=== PATIENT | female | born 1945 | race Caucasian/White ===

== ENCOUNTER → 2020-10-09 | Outpatient (CLI) | payer MEDICARE ==
[~2020-10-09] MED LIST: HYDROXYCHLOROQ200 MG PO; LASIX20 MG PO; LEFLUNOMIDE20 MG PO; LEVOTHYROXINE50 MCG PO; LISINOPRIL10 MG PO; NORCO 5-325 TA1 EACH PO; NORCO 7.5-3251 EACH PO; POTASSIUM CHLO10 MEQ PO; PRILOSEC OTC20 MG PO; TRAMADOL HCL50 MG PO
== END ==
LOC: MAMO 11:30
DX: Z12.31 Encounter for screening mammogram for malignant neoplasm of breast (principal)
CPT/HCPCS: 77063; 77067

== ENCOUNTER → 2021-04-30 | Outpatient (CLI) | payer MEDICARE | LOC: RT 16:06 | DX: I10 Essential (primary) hypertension (principal) | CPT/HCPCS: 93005 ==

== ENCOUNTER 2021-08-15 17:32 | Emergency (ER) | payer MEDICARE ==
[2021-08-15 19:32] LABS: BUN/CREATININE RATIO 18 (0-10)
[2021-08-15 19:36] LABS: RED BLOOD COUNT 3.39 M/UL (4.00-5.10); WHITE BLOOD COUNT 11.5 K/UL (4.5-11.0)
[2021-08-16] MEDS ORDERED: LASIX20 MG PO (01:39)
== END 2021-08-16 02:12 | disposition home or self-care (01) ==
LOC: ER1 17:32
PROVIDERS: Physician Assistant Medical
DX: R60.0 Localized edema (principal); D64.9 Anemia, unspecified; R53.81 Other malaise; K64.9 Unspecified hemorrhoids; R19.7 Diarrhea, unspecified
CPT/HCPCS: 36415; 71045; 73590; 73620; 80053; 82550; 82553; 83874; 83880; 84439; 84443; 84484; 85025; 93005; 99284

== ENCOUNTER 2021-08-29 08:34 | Inpatient (IN) | payer MEDICARE ==
[~2021-08-29] VITALS: Ht 165.1 cm; Wt 51.7 kg
[~2021-08-29 08:34] MED LIST changes: +OMEPRAZOLE40 MG PO; -PRILOSEC OTC20 MG PO
[2021-08-29 09:15] LABS: HEMOGLOBIN 10.9 gm/dl (12.3-15.3); RED BLOOD COUNT 3.55 M/UL (4.00-5.10); WHITE BLOOD COUNT 7.5 K/UL (4.5-11.0)
[2021-08-29 09:38] LABS: BUN/CREATININE RATIO 15 (0-10)
[2021-08-29] MEDS ORDERED: HYDROCODON-ACE1 EAC4 PO (12:06)
[2021-08-29] MEDS ORDERED: ASPIRIN EC81 MG PO (12:07)
[2021-08-30 05:33] LABS: HEMOGLOBIN 9.1 gm/dl (12.3-15.3)
[2021-08-30 05:34] LABS: RED BLOOD COUNT 3.05 M/UL (4.00-5.10); WHITE BLOOD COUNT 23.6 K/UL (4.5-11.0)
[2021-08-30 05:47] LABS: BUN/CREATININE RATIO 17 (0-10)
[2021-08-31 07:37] LABS: HEMOGLOBIN 8.1 gm/dl (12.3-15.3)
[2021-08-31 08:08] LABS: BUN/CREATININE RATIO 17 (0-10)
[2021-08-31 08:41] LABS: RED BLOOD COUNT 2.65 M/UL (4.00-5.10)
[2021-09-01 04:33] LABS: HEMOGLOBIN 7.5 gm/dl (12.3-15.3); RED BLOOD COUNT 2.56 M/UL (4.00-5.10); WHITE BLOOD COUNT 25.6 K/UL (4.5-11.0)
[2021-09-01 04:55] LABS: BUN/CREATININE RATIO 24 (0-10)
--- NOTE | 2021-09-01 15:25 | NUR ---
DISCUSSED PATIENT FEELING WEAK WITH DR. ROSAS. HE STATES TO NOT LET PATIENT WORK WITH PT TODAY AND SEE HOW SHE IS TOMORROW. ORDER GIVEN FOR MINERAL OIL AFTER I EXPLAINED THAT SHE HAD NOT HAD MUCH OUTPUT IN HER COLOSTOMY. HE WAS ALSO AWARE OF ABNORMAL LABS AND SAID NOT TO TRANSFUSE UNTIL LABS CHANGE OR PATIENT CONDITION CHANGES.
[2021-09-02 07:26] LABS: HEMOGLOBIN 8.6 gm/dl (12.3-15.3); WHITE BLOOD COUNT 22.4 K/UL (4.5-11.0)
[2021-09-02 07:30] LABS: RED BLOOD COUNT 2.87 M/UL (4.00-5.10)
[2021-09-02 07:46] LABS: BUN/CREATININE RATIO 23 (0-10)
--- NOTE | 2021-09-02 08:08 | NUR ---
PATIENT NOTED TO HAVE A CALCIUM OF 5.9 THIS MORNING ON LABWORK. CONTACTED AND STATED THAT HE WOULD PUT ORDERS IN WHEN HE GOT HERE. PATIENT STABLE AT THIS TIEM WITH NO DISTRESS NOTED.
--- NOTE | 2021-09-02 14:27 | NUR ---
PATIENT REQUESTING PEPPERMINT AT THIS TIME TO HELP KEEP HER MOUTH MOIST. APPROVED.
[2021-09-03 04:23] LABS: HEMOGLOBIN 8.7 gm/dl (12.3-15.3); RED BLOOD COUNT 2.89 M/UL (4.00-5.10); WHITE BLOOD COUNT 23.8 K/UL (4.5-11.0)
[2021-09-03 04:37] LABS: BUN/CREATININE RATIO 21 (0-10)
[2021-09-04 06:29] LABS: HEMOGLOBIN 8.3 gm/dl (12.3-15.3); RED BLOOD COUNT 2.76 M/UL (4.00-5.10)
[2021-09-04 10:26] LABS: BUN/CREATININE RATIO 20 (0-10)
[2021-09-07 05:01] LABS: HEMOGLOBIN 8.3 gm/dl (12.3-15.3); RED BLOOD COUNT 2.63 M/UL (4.00-5.10)
[2021-09-07 05:08] LABS: WHITE BLOOD COUNT 39.8 K/UL (4.5-11.0)
[2021-09-07 05:20] LABS: BUN/CREATININE RATIO 23 (0-10)
[2021-09-08 08:10] LABS: HEMOGLOBIN 9.3 gm/dl (12.3-15.3); RED BLOOD COUNT 3.01 M/UL (4.00-5.10); WHITE BLOOD COUNT 25.6 K/UL (4.5-11.0)
[2021-09-08 11:09] LABS: BUN/CREATININE RATIO 29 (0-10)
--- NOTE | 2021-09-10 16:20 | NUR ---
PT VERBALIZED [facility] FOR PHONE CONSENT FOR PEG TUBE PLACEMENT. SAID SHE IS TOO WEAK AND HER HANDS ARE SWOLLEN.
--- NOTE | 2021-09-12 13:09 | NUR ---
RECIEVED ORDERS FROM DR. MENDIOLA TO START TUBE FEEDING (JEVITY 1.5). FEEDING STARTED AT 25 ML/HR AND WILL ADVANCE 10ML TO 20ML EVERY 8 HOURS UNTIL GOAL RATE OF 35 ML/HR IS ACHIEVED. PATIENT IS TOLERATING WELL. WILL CONTINUE TO MONITOR.
[2021-09-13 07:01] LABS: HEMOGLOBIN 7.6 gm/dl (12.3-15.3); RED BLOOD COUNT 2.49 M/UL (4.00-5.10); WHITE BLOOD COUNT 11.3 K/UL (4.5-11.0)
[2021-09-13 08:40] LABS: BUN/CREATININE RATIO 39 (0-10)
[2021-09-13] MEDS ORDERED: MEGACE TAB 40 M40 MG PO (14:52)
[2021-09-13] MEDS ORDERED: PERCOCET 5/325 T1 EA PO (14:52)
[2021-09-14 04:11] LABS: HEMOGLOBIN 8.2 gm/dl (12.3-15.3); RED BLOOD COUNT 2.58 M/UL (4.00-5.10)
[2021-09-14 04:20] LABS: BUN/CREATININE RATIO 46 (0-10)
--- NOTE | 2021-09-14 22:52 | NUR ---
SPOKE WITH LEIGH AT [facility] AND SHE REQUESTED THAT THE PATIENT BE BROUGHT IN THE AM DUE TO IT BEING SO LATE. I NOTIFIED JAMES WITH THE AMBULANCE SERVICE ND HE SAID THEY WOULD COME GET HER IN THE MORNING ND THAT THEY HAD ALREADY ANTICIPATED DOING SO DUE TO DEMAND AND ROAD CONDITIONS. I SPOKE WITH PAOLO MAGALLON AND NOTIFIED HER OF THIS AND SHE SAID IT WAS OK. PT WILL LEAVE IN AM. NOTIFIED DENISE
[2021-09-15 04:53] LABS: HEMOGLOBIN 7.3 gm/dl (12.3-15.3); RED BLOOD COUNT 2.41 M/UL (4.00-5.10)
[2021-09-15 05:00] LABS: WHITE BLOOD COUNT 5.9 K/UL (4.5-11.0)
[2021-09-15 05:27] LABS: BUN/CREATININE RATIO 39 (0-10)
== END 2021-09-15 12:35 | DRG 329 ==
LOC: ER1 08:34 → CDU 11:44 → CCU 11:44 → MED SURG 4 08-30 20:07
PROVIDERS: Student in an Organized Health Care Education/Training Program; ADMIT Surgery
PROC: 0DTN0ZZ Resection of Sigmoid Colon, Open Approach (ICD-10-PCS; principal; 2021-09-10)
PROC: 0D1N0Z4 Bypass Sigmoid Colon to Cutaneous, Open Approach (ICD-10-PCS; 2021-09-10)
PROC: 0DH63UZ Insertion of Feeding Device into Stomach, Percutaneous Approach (ICD-10-PCS; 2021-09-11)
PROC: 3E0336Z Introduction of Nutritional Substance into Peripheral Vein, Percutaneous Approach (ICD-10-PCS; 2021-09-11)
DX: K57.20 Diverticulitis of large intestine with perforation and abscess without bleeding (principal); K65.1 Peritoneal abscess; Z68.1 Body mass index [BMI] 19.9 or less, adult; E44.0 Moderate protein-calorie malnutrition; E83.51 Hypocalcemia; Z20.822 Contact with and (suspected) exposure to COVID-19; R62.7 Adult failure to thrive; M06.9 Rheumatoid arthritis, unspecified; L89.151 Pressure ulcer of sacral region, stage 1; E03.9 Hypothyroidism, unspecified; Z79.899 Other long term (current) drug therapy
CPT/HCPCS: 36415; 71045; 80048; 80053; 82272; 82310; 82550; 82553; 82962; 83605; 83735; 84132; 84439; 84443; 84484; 85025; 85027; 85610; 86850; 86900; 86901; 87040; 93005; 96374; 97110; 97110-GP-CQ; 97162; 97166; 97530; 97530-GP-CQ; 97535; 99285; A6212; J0610; J0690; J1100; J1170; J1650; J2001; J2185; J2370; J2405; J2543; J2704; J3010; J7040; J7120; Q9967; U0002

== ENCOUNTER 2021-09-17 17:31 | Emergency (ER) | payer MEDICARE ==
[~2021-09-17 17:31] MED LIST changes: +ASPIRIN EC81 MG PO; +HYDROCODON-ACE1 EAC4 PO; +MEGACE TAB 40 M40 MG PO; +PERCOCET 5/325 T1 EA PO
[2021-09-17 19:43] LABS: HEMOGLOBIN 7.4 gm/dl (12.3-15.3); RED BLOOD COUNT 2.27 M/UL (4.00-5.10); WHITE BLOOD COUNT 6.4 K/UL (4.5-11.0)
[2021-09-17 20:01] LABS: BUN/CREATININE RATIO 49 (0-10)
== END 2021-09-17 22:50 | disposition home or self-care (01) ==
LOC: ER1 17:31
PROVIDERS: Emergency Medicine
DX: D64.9 Anemia, unspecified (principal); K94.03 Colostomy malfunction
CPT/HCPCS: 80053; 85025; 85610; 99284

== ENCOUNTER 2021-09-19 05:24 | Inpatient (IN) | payer MEDICARE ==
[~2021-09-19] VITALS: Ht 165.1 cm; Wt 64.2 kg
[2021-09-19 18:12] LABS: RED BLOOD COUNT 1.98 M/UL (4.00-5.10); WHITE BLOOD COUNT 17.3 K/UL (4.5-11.0)
[2021-09-19 18:14] LABS: HEMOGLOBIN 6.6 gm/dl (12.3-15.3)
[2021-09-19] MEDS ORDERED: BETADINE30 ML TOP (18:19)
[2021-09-19] MEDS ORDERED: TRIPLE ANTIBIO1 EACH TP (18:19)
[2021-09-19] MEDS ORDERED: ROXICODONE5 MG PO (18:19)
[2021-09-19] MEDS ORDERED: APLISOL5 TUB UNIT ID (18:21)
[2021-09-19 18:36] LABS: BUN/CREATININE RATIO 41 (0-10)
[2021-09-19 21:37] LABS: WHITE BLOOD COUNT 13.7 K/UL (4.5-11.0)
[2021-09-19 21:45] LABS: RED BLOOD COUNT 3.92 M/UL (4.00-5.10)
[2021-09-19 21:46] LABS: HEMOGLOBIN 12.3 gm/dl (12.3-15.3)
[2021-09-19 21:50] LABS: BUN/CREATININE RATIO 43 (0-10)
[2021-09-20 02:18] LABS: HEMOGLOBIN 11.6 gm/dl (12.3-15.3); RED BLOOD COUNT 3.7 M/UL (4.00-5.10); WHITE BLOOD COUNT 15.1 K/UL (4.5-11.0)
[2021-09-20 02:42] LABS: BUN/CREATININE RATIO 41 (0-10)
[2021-09-20 16:23] LABS: HEMOGLOBIN 11.9 gm/dl (12.3-15.3)
[2021-09-21 02:27] LABS: RED BLOOD COUNT 3.45 M/UL (4.00-5.10); WHITE BLOOD COUNT 17.5 K/UL (4.5-11.0)
[2021-09-21 02:52] LABS: BUN/CREATININE RATIO 37 (0-10)
--- NOTE | 2021-09-21 03:13 | NUR ---
PHYSICAN AWARE OF PATIENT LACTIC ACID RESULTS
--- NOTE | 2021-09-21 07:06 | NUR ---
PT EXTUBATED HERSELF. O2 SATS 93% ON ROOM AIR. PT WITH WEAK COUGH AND UNABLE TO MANAGE SECRETIONS. RESP CALLED AND AT BEDSIDE. NOC. CALLED AND AT BEDSIDE. BP 148/103. LEVOPHED STOPPED AND FENTANYL STOPPED. NG SUCTIONED PER RT WITH LARGE AMT OF THICK ABERNATHY SECRETIONS OBTAINED. PT PLACED ON O2 @ 4L/NC WITH O2 SAT 100%. PT ALERT AND ORIENTED AND AWARE OF SITUATION.
--- NOTE | 2021-09-21 13:47 | NUR ---
PT NOTED TO HAVE LOW O2 SAT IN 80'S. O2 INCREASED TO 4L/NC WITH NO IMPROVEMENT. PT PLACED ON 100% NRB WITH NO IMPROVEMENT. RESP CALLED AND PT PLACED ON BIPAP @ 100% FIO2. O2 SAT UP TO 94%. PT NOT RESPONDING EARLIER. DR MORTON CALLED AND AT BEDSIDE. WILL CONTINUE TO MONITOR CLOSELY
--- NOTE | 2021-09-21 15:35 | NUR ---
PT REMAINS ON BIPAP @ 60%. VITAL SIGNS STABLE. REMAINS ON LEVOPHED @ 2/HR. PT NOT RESPONSIVE EARLIER. WILL OPEN EYES AND NOD HEAD WHEN SPOKEN TO. NO VERBALIZATION NOTED. DR MENDIOLA AWARE. DR MORTON AWARE. WILL CONTINUE TO MONITOR CLOSELY
[2021-09-22 04:36] LABS: HEMOGLOBIN 10.2 gm/dl (12.3-15.3); RED BLOOD COUNT 3.28 M/UL (4.00-5.10)
[2021-09-22 04:44] LABS: WHITE BLOOD COUNT 22.3 K/UL (4.5-11.0)
[2021-09-22 05:32] LABS: BUN/CREATININE RATIO 25 (0-10)
--- NOTE | 2021-09-23 03:54 | NUR ---
CHANGED DRESSING ON PATIENT ABSCESS ON LOWER LEFT ABDOMEN, CHANGED COLOSTOMY BAG
[2021-09-23 04:49] LABS: HEMOGLOBIN 8.6 gm/dl (12.3-15.3)
[2021-09-23 04:54] LABS: RED BLOOD COUNT 2.76 M/UL (4.00-5.10); WHITE BLOOD COUNT 8.8 K/UL (4.5-11.0)
[2021-09-23 05:41] LABS: BUN/CREATININE RATIO 32 (0-10)
[2021-09-23 21:10] LABS: HEMOGLOBIN 7.3 gm/dl (12.3-15.3); WHITE BLOOD COUNT 7.9 K/UL (4.5-11.0)
[2021-09-23 21:19] LABS: RED BLOOD COUNT 2.29 M/UL (4.00-5.10)
--- NOTE | 2021-09-24 01:44 | NUR ---
late entry 09/23/211924 Dr. Day at bedside spoke with patient and sister, decision to make patient DNR/DNI
--- NOTE | 2021-09-24 01:45 | NUR ---
late entry 09/23/212012 patient has blood coming from absess and ostomy, 300 ml of blood emptyied from ostomy, Dr. Baxter and Dr. Day notified of circumstances, patient states she put "something in her butt and it needs removed" patient is in pain cleaned patient, replaced bed linens, changed gown, changed patient dressings over abscess
--- NOTE | 2021-09-24 01:47 | NUR ---
late entry 09/23/21 2201 changed dressing patients abscess, patient states pain medicine did not help states we need to get the stuff around her waist and the thing she put in her butt out, patient more confused
--- NOTE | 2021-09-24 01:49 | NUR ---
late entry 09/23/[address] Baxter at bedside, 200 Ml blood emptied from ostomy, saturated dressing removed from abscess and redressed by Dr. Baxter, discussed patient care with sister, sister states she wants patient placed on comfort care, patient is more confused, sister is only living relative
--- NOTE | 2021-09-24 01:51 | NUR ---
late entry 09/23/21 2303 Patient placed on comfort measures per Dr. Baxter, orders cancelled, medication for comfort measures ordered
--- NOTE | 2021-09-24 06:08 | NUR ---
CANDI contacted [phone] spoke with Ines Aly case # [id number], Home called spoke with bijal
== END 2021-09-24 05:01 | disposition expired | DRG 329 ==
LOC: CCU 17:14
PROVIDERS: Family Medicine; Internal Medicine; Surgery; ADMIT Internal Medicine
PROC: 0BH17EZ Insertion of Endotracheal Airway into Trachea, Via Natural or Artificial Opening (ICD-10-PCS; 2021-09-19)
PROC: 5A1945Z Respiratory Ventilation, 24-96 Consecutive Hours (ICD-10-PCS; 2021-09-19)
PROC: 30233N1 Transfusion of Nonautologous Red Blood Cells into Peripheral Vein, Percutaneous Approach (ICD-10-PCS; 2021-09-19)
PROC: 0DH63UZ Insertion of Feeding Device into Stomach, Percutaneous Approach (ICD-10-PCS; 2021-09-19)
PROC: 0D1L0Z4 Bypass Transverse Colon to Cutaneous, Open Approach (ICD-10-PCS; 2021-09-19)
PROC: 3E04329 Introduction of Other Anti-infective into Central Vein, Percutaneous Approach (ICD-10-PCS; 2021-09-19)
PROC: 3E033XZ Introduction of Vasopressor into Peripheral Vein, Percutaneous Approach (ICD-10-PCS; principal; 2021-09-19 18:58)
PROC: B24BZZZ Ultrasonography of Heart with Aorta (ICD-10-PCS; 2021-09-20)
PROC: 5A09457 Assistance with Respiratory Ventilation, 24-96 Consecutive Hours, Continuous Positive Airway Pressure (ICD-10-PCS; 2021-09-21)
PROC: 5A0935A Assistance with Respiratory Ventilation, Less than 24 Consecutive Hours, High Flow/Velocity Cannula (ICD-10-PCS; 2021-09-23)
DX: K94.09 Other complications of colostomy (principal); Z66 Do not resuscitate; Z51.5 Encounter for palliative care; Z20.822 Contact with and (suspected) exposure to COVID-19; L89.154 Pressure ulcer of sacral region, stage 4; A41.9 Sepsis, unspecified organism; J96.02 Acute respiratory failure with hypercapnia; R65.21 Severe sepsis with septic shock; J96.01 Acute respiratory failure with hypoxia; J18.9 Pneumonia, unspecified organism; K65.9 Peritonitis, unspecified; K65.1 Peritoneal abscess; E43 Unspecified severe protein-calorie malnutrition; K51.90 Ulcerative colitis, unspecified, without complications; I31.3 Pericardial effusion (noninflammatory); N39.0 Urinary tract infection, site not specified; E87.2 Acidosis; D62 Acute posthemorrhagic anemia; I96 Gangrene, not elsewhere classified; E87.1 Hypo-osmolality and hyponatremia; Z68.1 Body mass index [BMI] 19.9 or less, adult; I11.0 Hypertensive heart disease with heart failure; I50.9 Heart failure, unspecified; E87.6 Hypokalemia; I08.3 Combined rheumatic disorders of mitral, aortic and tricuspid valves; L89.626 Pressure-induced deep tissue damage of left heel; B96.4 Proteus (mirabilis) (morganii) as the cause of diseases classified elsewhere; B95.2 Enterococcus as the cause of diseases classified elsewhere; K52.9 Noninfective gastroenteritis and colitis, unspecified; E03.9 Hypothyroidism, unspecified; I48.91 Unspecified atrial fibrillation; R62.7 Adult failure to thrive; Y83.8 Other surgical procedures as the cause of abnormal reaction of the patient, or of later complication, without mention of misadventure at the time of the procedure; Z90.49 Acquired absence of other specified parts of digestive tract; Z79.01 Long term (current) use of anticoagulants; Z79.82 Long term (current) use of aspirin; Z98.890 Other specified postprocedural states
CPT/HCPCS: ECHO; 36415; 36430; 36600; 71045; 80048; 80053; 80202; 82803; 82962; 83605; 83735; 84132; 85007; 85014; 85018; 85025; 85027; 85384; 85610; 85730; 86850; 86900; 86901; 86920; 87040; 87086; 93306; 94002; 94003; 94640; 94660; 94760; 99284; A6212; C9113; J0171; J1650; J1940; J2020; J2060; J2185; J2250; J2270; J2370; J2543; J3370; J3480; J7050; J7070; J7120; P9016; P9047; U0002